=== PATIENT | female | born 1985 | race Caucasian/White ===

== ENCOUNTER 2017-07-15 22:43 | Emergency (ER) | payer OTHER, MEDICAID ==
--- NOTE | 2017-07-15 23:40 | ED Physician Chart ---
ED Chief Complaint/HPI - Patient Information Date Seen:: 07/15/17 Time Seen:: 23:35 Chief Complaint:: cut rt arm History of Present Illness:: pt was at home 1 hr ago. had been drinking etoh. she accidentally put her rt arm through the window breaking window and cutting rt arm. pt is alert but wont speak to me. she has nausea and holds bag by mouth but is refusing to accept nausea med. she denies any other pain or trauma. last d tet was 1 month ago at [facility]. no [facility]. no dm hx. no pulsatile bleeding from arm lac. no numbness in hand or loss or fxn. pt thinks there is no glass in the wound. she denies risk of gravid but refuses xray. Allergies:: Allergies Allergy/AdvReac Type Severity Reaction Status Date / Time No Known Allergies Allergy Verified 07/15/17 23:19 Vitals:: Vital Signs - 8 hr 07/15/17 22:50 Temp 98.7 F HR 70 RR 18 BP 103/57 O2 Sat % 97 Historian:: Patient, Family Member (mom) ED Review of Systems - Review of Systems General/Constitutional: No fever, No chills, No weight loss, No weakness, No diaphoresis, No edema, No loss of appetite Skin: No skin lesions, No rash, No bruising Head: No headache, No light-headedness Eyes: No loss of vision, No pain, No diplopia ENT: No earache, No nasal drainage, No sore throat, No tinnitus Neck: No neck pain, No swelling, No thyromegaly, No stiffness, No mass noted Cardio Vascular: No chest pain, No palpitations, No PND, No orthopnea, No edema Pulmonary: No SOB, No cough, No sputum, No wheezing GI: No nausea, No vomiting, No diarrhea, No pain, No melena, No hematochezia, No constipation, No hematemesis G/U: No dysuria, No frequency, No hematuria Musculoskeletal: No bone or joint pain, No back pain, No muscle pain, Other Endocrine: No polyuria, No polydipsia Psychiatric: No prior psych history, No depression, No anxiety, No suicidal ideation Hematopoietic: No bruising, No lymphadenopathy Allergic/Immuno: No urticaria, No angioedema Neurological: No syncope, No focal symptoms, No weakness, No paresthesia, No headache, No seizure, No dizziness, No confusion, No vertigo ED Past Medical History - Past Medical History Past Medical History: No significant medical hx Social History: Alcohol, Lives With Parents Medication: None Family Medical History - Family Member Mother History Unknown: Yes ED Physical Exam - Physical Examination General/Constitutional: Awake, Well-developed, well-nourished, Alert, No distress, Non-toxic appearing, Ambulatory Other Gen/Cons comments:: pt appears a+o but will not speak to me. she does speak and is acting nrmlly per mom. Mom says "she didnt drink very much actually". Head: Atraumatic Eyes: Lids, conjuctiva normal, PERRL, EOMI Skin: Nl inspection, No rash, No skin lesions, No ecchymosis, Well hydrated, No lymphadenopathy ENMT: External ears, nose nl, Nasal exam nl, Lips, teeth, gums nl Neck: Nontender, Full ROM w/o pain, No JVD, No nuchal rigidity, No bruit, No mass, No stridor Respiratory: Nl effort/Exclusion, Clear to Auscultation, No Wheeze/Rhonchi/Rales Cardio Vascular: RRR, No murmur, gallop, rubs, NL S1 S2 GI: No tenderness/rebounding/guarding, No organomegaly, No hernia, Normal BS's, Nondistended, No mass/bruits, No McBurney tenderness : No CVA tenderness Extremities: No tenderness or effusion, Full ROM, normal strength in all extremities, No edema, Normal digits & nails Other Extremities comments:: 4 cm lac horrizontal on mid volar rt forearm Neuro/Psych: Alert/oriented, DTR's symmetric, Normal sensory exam, Normal motor strength, Judgement/insight normal, Mood normal, Normal gait, No focal deficits Misc: normal gait, Normal back, No paraspinal tenderness ED Assessment Location:: 4cm lac volar rt mid forearm betadyne prep. explored no f.b. no nerve, vascular or tendon injury. ns irrigation. closed w 3.0 nylon x 1 vertical matress and 2 simple sutures w good wound closure. Laceration Type:: Intermediate Wound Length: 4 cm ED Septic Shock - . Is Septic Shock (SBP<90, OR Lactate>4 mmol\\L) present?: No - <6hrs of presentation: Vital Signs: Vital Signs - 8 hr 07/15/17 22:50 Temp 98.7 F HR 70 RR 18 BP 103/57 O2 Sat % 97 ED Reassessment (Disposition) - Reassessment Reassessment:: pt being dcd w her mom to transport her home. this was def not a suicide attempt...there was a argument btwn pt and her that preceded breaking window. overall she feels safe at home. sutures out in 2 wks. keep clean. keflex rx Reassessment Condition:: Improved - Diagnosis Diagnosis:: 4cm lac rt forearm s/p sutured in ed - Aftercare/Follow up Instructions Aftercare/Follow-Up Instructions:: Refer to Discharge Instructions - Patient Disposition Discharge/Transfer:: Home Condition at Disposition:: Improved
== END 2017-07-16 00:42 | disposition home or self-care (01) ==
LOC: ER 22:43
DX: S51.811A Laceration without foreign body of right forearm, initial encounter (principal); F10.10 Alcohol abuse, uncomplicated; W25.XXXA Contact with sharp glass, initial encounter; Y93.89 Activity, other specified; Y92.89 Other specified places as the place of occurrence of the external cause; Y99.8 Other external cause status
CPT/HCPCS: 99283; 12002; Q0162; Z7502; Z7610